=== PATIENT | male | born 1990 | race African-American/Black ===

== ENCOUNTER 2024-08-02 14:43 | Outpatient (AMB) | payer OTHER, SELFPAY ==
--- NOTE | 2024-08-02 15:07 | HO.NEPHOV ---
Vital Signs 08/02/24 15:08 Height 5 ft 9 in Weight 192 lb 4 oz BMI 28.4 BP 112/70 Blood Pressure Location Lt brachial Position Sitting Pulse 75 Pulse Source Pulse Oximeter Pulse Oximetry (%) 98 Oxygen Delivery Method Room Air Intake Visit Reasons: Elevated Creatinine- Conf Cotton Inspector Required: No Accompanied by: Spouse Allergies Sulfa (Sulfonamide Antibiotics) Allergy (Verified 08/02/24 15:10) Unknown HPI Comments Details: I had the pleasure of seeing Shannan in consultation for abnormal renal functions. He is an immigrant from [facility] was been in [facility] for last 2 years. He was accompanied by his Lexy. He has history of recurrent malaria while in [facility] and had taken anti malarial medications. When he arrived in [facility] he was diagnosed to have hypothyroidism and has been on levothyroxine. He also was investigated to have some allergies for which he took cetrizine. When the primary care did some blood work on him, he was found to have serum creatinine close to 1.38 which was consistent when repeated. He never had blood work done in [facility] and is unsure whether he had any underlying CKD in the past. He denied any hospitalizations with urinary tract infection as a child. He denies using any cocaine or having HIV or hepatitis-B. He does not have any diabetes or hypertension. He denies any edema, hematuria, dysuria, orthostatic symptoms. He had 1 episode of syncope close to year and a half for which he was seen in emergency room where he was found to have a serum creatinine of 1.24. He has no specific complaints and currently feels well. [facility] Medical History (Updated 08/02/24 @ 15:54 by Sebastián Gaxiola MD) Elevated serum creatinine Hypothyroidism Family History Father Hypertension Social History (Updated 08/02/24 @ 15:13 by Lesley Conner MA) Alcohol intake: former Patient Tobacco Use Status: Never used Tobacco Physical Exam Vital Signs: Last Vital Signs Pulse 75 08/02/24 15:08 BP 112/70 08/02/24 15:08 Pulse Ox 98 08/02/24 15:08 Oxygen Delivery Method Room Air 08/02/24 15:08 BMI result Body Mass Index 28.4 Const General: comfortable and no acute distress Orientation/consciousness: patient oriented x3 HEENT Head: Yes normocephalic Mouth: Normal oral and palatal mucosa present Eyes EOM: EOMs intact bilaterally Neck Neck: Yes supple Resp Auscultation: clear to auscultation bilaterally Cardio Jugular venous distension: no JVD Rate: regular rate GI Palpation (GI): Soft to palpation Auscultation: normal bowel sounds General: Yes no CVA tenderness Back/Spine/Pelvis Back: no CVA tenderness Skin General skin exam: no rashes or lesions noted Neuro General: patient oriented x3 and moves all extremities Extrem General: Yes no pedal edema Results Reviewed Nephrology Results: No Data to Display Assessment & Plan Assessment & Plan (1) CKD stage 3a, GFR 45-59 ml/min: Code(s): N18.31 - Chronic kidney disease, stage 3a Category: Medical Plan Shannan has CKD from unknown etiology. He is an immigrant from [facility] and has had multiple episodes of plasmodium falciparum infection and has taken multiple courses of antimalarial medications. He never had renal functions checked in [facility]. He denies any UTI as a child. He is not diabetic or hypertensive. Differential diagnosis for CKD is quite broad. I have ordered blood work, imaging studies and 24 hour urine collection for creatinine clearance. He likely will need renal biopsy. He was encouraged to maintain good hydration and avoid nonsteroidal anti-inflammatories. I did not make any medication changes. Time spent retrieving data, patient encounter and documentation 59 minutes. Answered all his and his 's questions & follow-up appointment given. Orders: Orders Blood Urea Nitrogen Today N18.31 - Chronic kidney disease, stage 3a Electrolytes Today N18.31 - Chronic kidney disease, stage 3a Calcium Today N18.31 - Chronic kidney disease, stage 3a Phosphorus Today N18.31 - Chronic kidney disease, stage 3a Myeloperoxidase Antibody Today N18.31 - Chronic kidney disease, stage 3a Complement C3 Today N18.31 - Chronic kidney disease, stage 3a Immunofixation Pnl, Serum Today N18.31 - Chronic kidney disease, stage 3a Phospholipase A2 Receptor Pnl Today N18.31 - Chronic kidney disease, stage 3a US renal BI Today N18.31 - Chronic kidney disease, stage 3a Vitamin D 25-OH Total Today N18.31 - Chronic kidney disease, stage 3a Prothrombin Time INR Today N18.31 - Chronic kidney disease, stage 3a Creatinine Today N18.31 - Chronic kidney disease, stage 3a Anti DNA DS Antibody Today N18.31 - Chronic kidney disease, stage 3a ANA M Reflex Titer and Pattern Today N1.31 - Chronic kidney disease, stage 3a Proteinase 3 PR3 Antibodies Today N1. - Chronic kidney disease, stage 3a Anti Glomerular Basement Memb Today N1. - Chronic kidney disease, stage 3a Complement C4 Today - Chronic kidney disease, stage 3a US renal doppler Today N1.31 - Chronic kidney disease, stage 3a Parathyroid Hormone Intact Today N1. - Chronic kidney disease, stage 3a Complete Blood Count Auto Diff Today N1. - Chronic kidney disease, stage 3a Creatinine Clearance Urine 24U Today N1. - Chronic kidney disease, stage 3a Protein Creatinine Ratio, Ur Today N1. - Chronic kidney disease, stage 3a UA and rflx microscopic Today - Chronic kidney disease, stage 3a Coding Level of Care Code New Pt Level 5 (37140) Diagnoses CKD stage 3a, GFR 45-59 ml/min
[2024-08-02 15:08] VITALS: BP 112/70; PULSE 75; O2SAT 98; BMI 28.4
== END 2024-08-02 16:08 | disposition home or self-care (01) ==
PROVIDERS: PCP Internal Medicine; Referring Provider Internal Medicine; Visit Provider Internal Medicine Nephrology
DX: N18.31 Chronic kidney disease, stage 3a (principal)
CPT/HCPCS: 99204

== ENCOUNTER → 2024-08-02 14:43 | Outpatient (BNVA) | payer OTHER, SELFPAY | PROVIDERS: PCP Internal Medicine; Referring Provider Internal Medicine; Visit Provider Internal Medicine Nephrology | DX: N18.31 Chronic kidney disease, stage 3a (principal) | CPT/HCPCS: 99202 ==

== ENCOUNTER 2024-08-04 10:04 | Outpatient (REF) | payer OTHER, SELFPAY ==
[2024-08-04 10:35] LABS: MANUAL DIFF FLAG NO
[2024-08-04 10:59] LABS: Basophils Percent Auto 0.8 % (0-2); Eosinophils Absolute Auto 0.1 X10*3/uL (0.0-0.4); Eosinophils Percent Auto 1.3 % (0-4); Hematocrit 40.2 % (42.0-52.0); Hemoglobin 13.5 g/dl (14.0-18.0); Imm Gran Abs Auto 0.02 X10*3/uL (0.00-0.03); Imm Gran Pct Auto 0.4 % (0.0-0.4); Lymphocytes Absolute Auto 2.4 X10*3/uL (1.2-4.9); Lymphocytes Percent Auto 45.9 % (20-40); Mean Corpuscular HGB Conc 33.6 g/dl (31.0-36.0); Mean Corpuscular Hemoglobin 29.3 pg (27.0-33.0); Mean Corpuscular Volume 87.4 fL (80.0-98.0); Mean Platelet Volume 9.8 fL (9.4-12.4); Monocytes Absolute Auto 0.5 X10*3/uL (0.1-1.2); Neutrophils Absolute Auto 2.2 x10*3/uL (2.0-8.3); Neutrophils Percent Auto 42.6 % (45-73); Platelet Count 242 X10*3/uL (160-400); Red Cell Distribution Width 13.1 % (11.0-16.0); White Blood Count 5.2 X10*3/uL (4.8-10.8)
[2024-08-04 11:04] LABS: INTERNATIONAL NORM RATIO 1.1 (0.9-1.1); Prothrombin Time 12.6 SEC (10.9-12.4)
[2024-08-04 11:23] LABS: Parathyroid Hormone Intact 40.6 pg/mL (8.7-77.1)
[2024-08-04 11:38] LABS: Anion Gap 9 (12-20); Blood Urea Nitrogen 11 mg/dL (9-16); Calcium 9.3 mg/dL (8.4-10.2); Carbon Dioxide 24 mmol/L (22-29); Chloride 107 mmol/L (96-108); Estimated Glomerular Filt Rate > 60; Phosphorus 2.7 mg/dL (2.7-4.5); Potassium 3.6 mmol/L (3.3-5.1); Sodium 136 mmol/L (135-145); Vitamin D 25-OH Total 30.5 ng/mL (>30)
[2024-08-04 12:14] LABS: Creatinine, mg/dL 42.37
[2024-08-04 12:28] LABS: Creatinine, 24Hr Urine 1.3 G/Day (1.0-2.0); Total Volume 24 Hour Urine 3050 mL
[2024-08-04 12:29] LABS: Creatinine (CrCl) 1.26 mg/dL (0.5-1.4); Creatinine Clearance 71.2 mL/min (85-125)
[2024-08-05 09:13] LABS: Complement C3 117 mg/dL (82-185)
[2024-08-07 15:37] LABS: IgA 150 mg/dL (47-310); IgG 1191 mg/dL (600-1640); IgM 105 mg/dL (50-300)
[2024-08-08 14:09] LABS: Anti Nuclear Antibody Screen NEGATIVE (NEGATIVE)
[2024-08-08 16:39] LABS: Anti DNA DS Antibody <1 IU/mL; Anti Glomerular Basement Memb <1.0 AI; Myeloperoxidase Antibody <1.0 AI; Proteinase 3 PR3 Antibodies <1.0 AI
[2024-08-10 21:03] LABS: Phospholipase A2 IgG ELISA <4 RU/mL; Phospholipase A2 IgG IFA NEGATIVE (NEGATIVE)
== END 2024-08-04 10:05 | disposition home or self-care (01) ==
LOC: HO.LAB 10:04
PROVIDERS: PCP Internal Medicine; Visit Provider Internal Medicine Nephrology
DX: N18.31 Chronic kidney disease, stage 3a (principal)
CPT/HCPCS: 36415; 80051; 82306; 82310; 82565; 82575; 82784; 83520; 83970; 84100; 84520; 85025; 85610; 86021; 86038; 86160; 86225; 86255; 86334

== ENCOUNTER 2024-08-11 10:55 | Outpatient (REF) | payer OTHER, SELFPAY ==
--- NOTE | ~2024-08-11 | US_ITS ---
EXAMINATION: US RETROPERITONEAL LIMITED (RENAL ONLY) CLINICAL INFORMATION: Chronic kidney disease. COMPARISON: None available. Technique: Multiple longitudinal and transverse sonographic images of the kidneys were obtained. Doppler was applied as indicated. FINDINGS: RIGHT KIDNEY: 9.7 x 6.6 x 6.3 cm (SAG x AP x TRV). The kidney is normal in size, contour, and echogenicity. Renal cortical thickness is normal. No calculi or focal parenchymal lesions. No hydronephrosis. LEFT KIDNEY: 10.1 x 4.9 x 5.9 cm (SAG x AP x TRV). The kidney is normal in size, contour, and echogenicity. Renal cortical thickness is normal. No calculi or focal parenchymal lesions. No hydronephrosis. There is normal Doppler bilaterally without evidence of renal artery stenosis. US/US renal doppler IMPRESSION: Normal examination. Electronically signed by: Anne Carballo MD 08/11/2024 03:50 PM EDT
--- NOTE | ~2024-08-11 | US_ITS ---
EXAMINATION: US RETROPERITONEAL LIMITED (RENAL ONLY) CLINICAL INFORMATION: Chronic kidney disease. COMPARISON: None available. Technique: Multiple longitudinal and transverse sonographic images of the kidneys were obtained. Doppler was applied as indicated. FINDINGS: RIGHT KIDNEY: 9.7 x 6.6 x 6.3 cm (SAG x AP x TRV). The kidney is normal in size, contour, and echogenicity. Renal cortical thickness is normal. No calculi or focal parenchymal lesions. No hydronephrosis. LEFT KIDNEY: 10.1 x 4.9 x 5.9 cm (SAG x AP x TRV). The kidney is normal in size, contour, and echogenicity. Renal cortical thickness is normal. No calculi or focal parenchymal lesions. No hydronephrosis. There is normal Doppler bilaterally without evidence of renal artery stenosis. US/US renal BI IMPRESSION: Normal examination. Electronically signed by: Anne Carballo MD 08/11/2024 03:50 PM EDT
== END 2024-08-11 10:56 | disposition home or self-care (01) ==
LOC: HO.HMGCX 10:55
PROVIDERS: PCP Internal Medicine; Visit Provider Internal Medicine Nephrology
DX: N18.31 Chronic kidney disease, stage 3a (principal)
CPT/HCPCS: 76775; 93975

== ENCOUNTER 2024-09-06 14:17 | Outpatient (AMB) | payer OTHER, SELFPAY ==
--- NOTE | 2024-09-06 14:36 | HO.NEPHOV_ITS ---
Vital Signs 09/06/24 14:37 Height 5 ft 9 in Weight 194 lb BMI 28.6 BP 104/64 Blood Pressure Location Lt brachial Position Sitting Pulse 75 Pulse Source Pulse Oximeter Pulse Oximetry (%) 97 Oxygen Delivery Method Room Air Intake Visit Reasons: 4 wks follow up-[facility] Education Professional Required: No Accompanied by: Spouse Allergies Sulfa (Sulfonamide Antibiotics) Allergy (Verified 09/06/24 14:37) Unknown HPI Comments Details: Shannan was seen in follow-up for his higher serum creatinine. He is an immigrant from [facility] was been in [facility] for last 2 years. He was accompanied by his Lexy. He has history of recurrent malaria while in [facility] and had taken anti malarial medications. When he arrived in [facility] he was diagnosed to have hypothyroidism and has been on levothyroxine. He also was investigated to have some allergies for which he took cetrizine. When the primary care did some blood work on him, he was found to have serum creatinine close to 1.38 which was consistent when repeated. He never had blood work done in [facility] and is unsure whether he had any underlying CKD in the past. He denied any hospitalizations with urinary tract infection as a child. He denies using any cocaine or having HIV or hepatitis-B. He does not have any diabetes or hypertension. He denies any edema, hematuria, dysuria, orthostatic symptoms. He had 1 episode of syncope close to year and a half for which he was seen in emergency room where he was found to have a serum creatinine of 1.24. He has no specific complaints and currently feels well. [facility] Medical History (Updated 09/06/24 @ 15:08 by Sebastián Gaxiola MD) Elevated serum creatinine Hypothyroidism Family History Father Hypertension Social History Alcohol intake: former Patient Tobacco Use Status: Never used Tobacco Review of Systems Const All systems reviewed & are unremarkable except as noted in HPI and below Physical Exam Vital Signs: Last Vital Signs Pulse 75 09/06/24 14:37 BP 104/64 09/06/24 14:37 Pulse Ox 97 09/06/24 14:37 Oxygen Delivery Method Room Air 09/06/24 14:37 BMI result Body Mass Index 28.6 Const General: comfortable and no acute distress Orientation/consciousness: patient oriented x3 HEENT Head: Yes normocephalic Mouth: Normal oral and palatal mucosa present Eyes EOM: EOMs intact bilaterally Neck Neck: Yes supple Resp Auscultation: clear to auscultation bilaterally Cardio Jugular venous distension: no JVD Rate: regular rate GI Palpation (GI): Soft to palpation Auscultation: normal bowel sounds General: Yes no CVA tenderness Back/Spine/Pelvis Back: no CVA tenderness Skin General skin exam: no rashes or lesions noted Neuro General: patient oriented x3 and moves all extremities Extrem General: Yes no pedal edema Results Reviewed Nephrology Results: Hgb 13.5 g/dl (14.0-18.0) L 08/04/24 WBC 5.2 X10*3/uL (4.8-10.8) 08/04/24 Plt Count 242 X10*3/uL (160-400) 08/04/24 Sodium 136 mmol/L (135-145) 08/04/24 Potassium 3.6 mmol/L (3.3-5.1) 08/04/24 Chloride 107 mmol/L (96-108) 08/04/24 Carbon Dioxide 24 mmol/L (22-29) 08/04/24 BUN 11 mg/dL (9-16) 08/04/24 Creatinine 1.26 mg/dL (0.5-1.4) 08/04/24 Calcium 9.3 mg/dL (8.4-10.2) 08/04/24 Phosphorus 2.7 mg/dL (2.7-4.5) 08/04/24 PTH Intact 40.6 pg/mL (8.7-77.1) 08/04/24 Renal US 08/11/24 Assessment & Plan Assessment & Plan (1) CKD (chronic kidney disease) stage 2, GFR 60-89 ml/min: Code(s): N18.2 - Chronic kidney disease, stage 2 (mild) Category: Medical Plan Evarist has CKD from unknown etiology. He is an immigrant from [facility] and has had multiple episodes of plasmodium falciparum infection and has taken multiple courses of antimalarial medications while living [place] country. He never had renal functions checked in [facility]. He denies any UTI as a child. He is not diabetic or hypertensive. His W/U included blood work & imaging studies which were unrevealing. His 24 hour urine collection for creatinine clearance showed a GFR of 71 mL/minute. Given all the negative workup to date he does not warrant a renal biopsy now. He was encouraged to maintain good hydration and avoid nonsteroidal anti-inflammatories. I did not make any medication changes. Answered all his and his 's questions & follow-up appointment given. Orders: Orders Creatinine 6 Months N18.2 - Chronic kidney disease, stage 2 (mild) Blood Urea Nitrogen 6 Months N18.2 - Chronic kidney disease, stage 2 (mild) Protein Creatinine Ratio, Ur 6 Months N18.2 - Chronic kidney disease, stage 2 (mild) Electrolytes 6 Months N18.2 - Chronic kidney disease, stage 2 (mild) UA and rflx microscopic 6 Months N18.2 - Chronic kidney disease, stage 2 (mild) Coding Level of Care Code Est Pt Level 4 (59511) Diagnoses CKD (chronic kidney disease) stage 2, GFR 60-89 ml/min N18.2
[2024-09-06 14:37] VITALS: BP 104/64; PULSE 75; O2SAT 97; BMI 28.6
== END 2024-09-06 15:13 | disposition home or self-care (01) ==
PROVIDERS: PCP Internal Medicine; Visit Provider Internal Medicine Nephrology
DX: N18.2 Chronic kidney disease, stage 2 (mild) (principal)
CPT/HCPCS: 99214

== ENCOUNTER → 2024-09-06 14:17 | Outpatient (BNVA) | payer OTHER, SELFPAY | PROVIDERS: PCP Internal Medicine; Visit Provider Internal Medicine Nephrology | DX: N18.2 Chronic kidney disease, stage 2 (mild) (principal) | CPT/HCPCS: 99212 ==

== ENCOUNTER 2025-03-09 14:54 | Outpatient (AMB) | payer OTHER, SELFPAY ==
--- NOTE | 2025-03-09 15:10 | HO.NEPHOV ---
Vital Signs 03/09/25 15:42 Height 5 ft 9 in Weight 190 lb 2 oz BMI 28.1 BP 100/60 Blood Pressure Location Lt brachial Position Sitting Intake Visit Reasons: 6mon follow up-Conf Washer Repairman Required: No Accompanied by: Self / Same As Patient Allergies Sulfa (Sulfonamide Antibiotics) Allergy (Verified 03/09/25 15:42) Unknown HPI Comments Details: Shannan was seen in follow-up for his higher serum creatinine. He is an immigrant from [facility] was been in [facility] for last 2 years. He has history of recurrent malaria while in [facility] and had taken anti malarial medications. When he arrived in [facility] he was diagnosed to have hypothyroidism and has been on levothyroxine. He also was investigated to have some allergies for which he took cetrizine. When the primary care did some blood work on him, he was found to have serum creatinine close to 1.38 which was consistent when repeated. He never had blood work done in [facility] and is unsure whether he had any underlying CKD in the past. He denied any hospitalizations with urinary tract infection as a child. He denies using any cocaine or having HIV or hepatitis-B. He does not have any diabetes or hypertension. He denies any edema, hematuria, dysuria, orthostatic symptoms. He had 1 episode of syncope close to year and a half for which he was seen in emergency room where he was found to have a serum creatinine of 1.24 which is currently stable. He has no specific complaints and currently feels well. [facility] Medical History (Updated 09/06/24 @ 15:08 by Sebastián Gaxiola MD) Elevated serum creatinine Hypothyroidism Family History Father Hypertension Social History Alcohol intake: former Patient Tobacco Use Status: Never used Tobacco Review of Systems Const All systems reviewed & are unremarkable except as noted in HPI and below Physical Exam Const General: comfortable and no acute distress Orientation/consciousness: patient oriented x3 HEENT Head: Yes normocephalic Mouth: Normal oral and palatal mucosa present Eyes EOM: EOMs intact bilaterally Neck Neck: Yes supple Resp Auscultation: clear to auscultation bilaterally Cardio Jugular venous distension: no JVD Rate: regular rate GI Palpation (GI): Soft to palpation Auscultation: normal bowel sounds General: Yes no CVA tenderness Back/Spine/Pelvis Back: no CVA tenderness Skin General skin exam: no rashes or lesions noted Neuro General: patient oriented x3 and moves all extremities Extrem General: Yes no pedal edema Results Reviewed Nephrology Results: Hgb 13.5 g/dl (14.0-18.0) L 08/04/24 WBC 5.2 X10*3/uL (4.8-10.8) 08/04/24 Plt Count 242 X10*3/uL (160-400) 08/04/24 Sodium 136 mmol/L (135-145) 08/04/24 Potassium 3.6 mmol/L (3.3-5.1) 08/04/24 Chloride 107 mmol/L (96-108) 08/04/24 Carbon Dioxide 24 mmol/L (22-29) 08/04/24 BUN 11 mg/dL (9-16) 08/04/24 Creatinine 1.26 mg/dL (0.5-1.4) 08/04/24 Calcium 9.3 mg/dL (8.4-10.2) 08/04/24 Phosphorus 2.7 mg/dL (2.7-4.5) 08/04/24 PTH Intact 40.6 pg/mL (8.7-77.1) 08/04/24 Renal US 08/11/24 Assessment & Plan Assessment & Plan (1) CKD (chronic kidney disease) stage 2, GFR 60-89 ml/min: Code(s): N18.2 - Chronic kidney disease, stage 2 (mild) Category: Medical Plan Shannan has CKD from unknown etiology. He is an immigrant from [facility] and has had multiple episodes of plasmodium falciparum infection and has taken multiple courses of antimalarial medications while living in [place] country. He never had renal functions checked in [facility]. He denies any UTI as a child. He is not diabetic or hypertensive. His W/U included blood work & imaging studies which were unrevealing. His 24 hour urine collection for creatinine clearance showed a GFR of 71 mL/minute. Given all the negative workup to date he does not warrant a renal biopsy now. He was encouraged to maintain good hydration and avoid nonsteroidal anti-inflammatories. I did not make any medication changes. I ordered repeat labs and 24 hour urine for cr cl. Answered all his and his 's questions & follow-up appointment given. Orders: Orders Blood Urea Nitrogen 1 Year N18.2 - Chronic kidney disease, stage 2 (mild) Creatinine 1 Year N18.2 - Chronic kidney disease, stage 2 (mild) Electrolytes 1 Year N18.2 - Chronic kidney disease, stage 2 (mild) Creatinine Clearance Urine 24U 1 Year N18.2 - Chronic kidney disease, stage 2 (mild) Coding Level of Care Code Est Pt Level 4 (21237) Diagnoses CKD (chronic kidney disease) stage 2, GFR 60-89 ml/min N18.2
--- OUTSIDE RECORDS SUMMARY | 2025-03-09 15:38 | XMS_ITS | Encounter Summary ---
Author Organization [facility] Address [address] [place] [address] Phone Care Team Providers Care Assistant Professor Of Marine Biology Name Role Phone Mariam Presley Primary Care Provider [phone] Encounter Details Date Type Department Care Team (Late st Contact Info) Description 07/19/2024 Documentation Only [facility], [address] [place] [address] [place], [place] [address] [place] [address] Social History Tobacco Use Types Packs/Day Years Used Date Smoking Tobacco: Never Assessed Sex and Gender Information Value Date Recorded Sex Assigned at Not on file Legal Sex Male 2:03 PM EDT Gender Identity Not on file Sexual Orientation Not on file documented as of this encounter Plan of Treatment Not on file documented as of this encounter Visit Diagnoses Not on filedocumented in this encounter Care Teams Assistant Professor Of Marine Biology Relationship Specialty Start Date End Date Mariam Presley PCP - General 07/19/24 documented as of this encounter
--- OUTSIDE RECORDS SUMMARY | 2025-03-09 15:38 | XMS_ITS | Clinical Summary ---
Author Organization [facility] Address [address] [place] [id number] Care Team Providers Care Hardwood Floor Installer Name Role Phone Mariam Presley Primary Care Provider [phone] Social History Tobacco Use Types Packs/Day Years Used Date Smoking Tobacco: Never Assessed Sex and Gender Information Value Date Recorded Sex Assigned at Not on file Legal Sex Male 2:03 PM EDT Gender Identity Not on file Sexual Orientation Not on file Plan of Treatment Health Maintenance Due Date Last Done Comments Hepatitis B Vaccine (1 of 3 - 19+ 3-dose series) 2008 Influenza Vaccine (Season Ended) 2025 Pneumococcal Vaccine: Peds ( 0 to 5 Years) and At-Risk Patients (6 to 49 Years) Aged Out No longer eligible b ased on patient's age to complete [place] [id number] [facility] Plan ([id number]) Care Teams Hardwood Floor Installer Relationship Specialty Start Date End Date Mariam Presley PCP - General 07/19/24
--- OUTSIDE RECORDS SUMMARY | 2025-03-09 15:38 | XMS_ITS | Clinical Summary ---
Author Organization [facility] [address] [place] [address] [place] [phone] Phone Care Team Providers Care Panel Installer Name Role Phone Mariam Presley MD Primary Care Provider [phone] Allergies Active Allergy Reactions Criticality Noted Date Comments Sulfa (Sulfonamide Antibiotics) 12/24 Medications cholecalciferol (VITAMIN D-3) 50 mcg (2,000 unit) tablet Take 1 tablet (2,000 Units total) by mouth 1 (one) time each day. 08/10/2024 Active levothyroxine (SYNTHROID, LEVOTHROID) 50 mcg tablet TAKE 1 TABLET BY MOUTH EVERY DAY 90 tablet 01/17/2025 Active Active Problems Problem Noted Date Diagnosed Date Hypothyroidism 05/10/2024 Pruritus 05/10/2024 Immunizations Name Administration Dates Next Due Influenza Quadravalent, MDCK , 0.5ml, preservative free (Flucelvax) 6mo and older 07/06/2023 Tdap Tetanus diptheria acell ular pertussis (Boostrix; Adacel) 7yo and older 07/06/2023 Surgical History Surgery Date Site/Laterality Comments HAND SURGERY PROCEDURE: HISTORICAL HAND SURGERY Family History Medical History Relation Name Comments Hypertension Father Relation Name Status Comments Father Social History Tobacco Use Types Packs/Day Years Used Date Smoking Tobacco: Never Smokeless Tobacco: Never Alcohol Use Standard Drinks/Week Comments Not Currently 0 (1 standard drink = 0.6 oz pur e alcohol) Sex and Gender Information Value Date Recorded Sex Assigned at Not on file Legal Sex Male 8:48 PM EST Gender Identity Not on file Sexual Orientation Not on file Obstetrics History Last Filed Vital Signs Vital Sign Reading Time Taken Comments Blood Pressure 110/60 08/10/2024 1:24 PM EDT Pulse 79 08/10/2024 1:24 PM EDT Temperature - - Respiratory Rate - - Oxygen Saturation - - Inhaled Oxygen Concentration - - Weight 87.5 kg (193 lb) 08/10/2024 1:24 PM EDT Height 177.8 cm (5' 10 ) 08/10/2024 1:24 PM EDT Body Mass Index 27.69 08/10/2024 1:24 PM EDT Plan of Treatment Upcoming Encounters Date Type Department Care Team (Late st Contact Info) Description 07/19/2025 11:00 AM EDT Office Visit Adult Medicine [facility] [address] [place] [phone] Mariam Presley MD [address] [place] [address] Health Maintenance Due Date Last Done Comments Hepatitis B Vaccines (1 of 3 - 19+ 3-dose series) 2008 Depression Screening 11/20/2023 HIV Screening 11/20/2023 Hepatitis C Screening 11/20/2023 Social Influencers of Health Screening 11/20/2023 COVID-19 Vaccine (2023-2 5 season) 2024 Influenza Vaccine (Season Ended) 2025 07/06/20 23 Cholesterol Screening (Lipid Panel) 05/12/2029 05/12/2024 DTaP,Tdap,and Td Vaccines (2 - Td or Tdap) 07/06/2033 07/06/2023 HIB Vaccines Aged Out No longer eligi ble based on patient's age to complete this topic HPV Vaccines Aged Out No longer eligi ble based on patient's age to complete this topic Hepatitis A Vaccines Aged Out No long er eligible based on patient's age to complete this topic IPV Vaccines Aged Out No longer eligi ble based on patient's age to complete this topic MMR Vaccines Aged Out No longer eligi ble based on patient's age to complete this topic Meningococcal ACWY Vaccine Aged Out N o longer eligible based on patient's age to complete this topic Meningococcal B Vaccine Aged Out No l onger eligible based on patient's age to complete this topic Pneumococcal Vaccine: Pediat rics (0 to 5 Years) and At-Risk Patients (6 to 64 Years) Aged Out No longer eligi ble based on patient's age to complete this topic RSV Immunization Patients Un mt 20 months Aged Out No longer eligible b ased on patient's age to complete this topic Varicella Vaccines Aged Out No longer eligible based on patient's age to complete this topic Procedures Procedure Name Priority Date/Time Associated Diagnosis Comments PEARL URINE CULTURE TUBE Routine 02/20/2025 2:46 PM EDT Chronic kidney disease, stage II (mild) URINALYSIS WITH REFLEX MICROSCOPIC AND CULTURE Routine 02/20/2025 2:46 PM EDT Chronic kidney disease, stage II (mild) THYROID STIMULATING HORMONE WITH REFLEX TO FREE T4 AND FREE T3 Routine 02/20/2025 2:46 PM EDT Hypothyroidism, unspecified type PROTEIN AND CREATININE WITH RATIO, URINE Routine 02/20/2025 2:46 PM EDT Chronic kidney disease, stage II (mild) ELECTROLYTE PANEL Routine 02/20/2025 2:4 6 PM EDT Chronic kidney disease, stage II (mild) BUN Routine 02/20/2025 2:46 PM EDT Chronic kidney disease, stage II (mild) CREATININE, SERUM Routine 02/20/2025 2:4 6 PM EDT Chronic kidney disease, stage II (mild) URINALYSIS WITH REFLEX MICROSCOPIC AND CULTURE Routine 02/20/2025 2:46 PM EDT Chronic kidney disease, stage II (mild) from Last 3 Months Results * Urinalysis with reflex microscopic and culture (02/20/2025 2:46 PM EDT) Specific [place] Urine 1.013 1.003 - 1.030 LAB URINALYSIS - AUTOMATED METHOD 02/20/2025 5:35 PM EDT [facility] pH, Urine 7.5 5.0 - 8.0 pH LAB URINALYSIS - AUTOMATED METHOD 02/20/2025 5:35 PM EDT [facility] Leukocytes, Urine Negative Negative LAB URINALYSIS - AUTOMATED METHOD 02/20/2025 5:35 PM EDT [facility] Nitrite, Urine Negative Negative LAB URINALYSIS - AUTOMATED METHOD 02/20/2025 5:35 PM EDT [facility] Protein, Urine Negative <=Trace mg/dL LAB URINALYSIS - AUTOMATED METHOD 02/20/2025 5:35 PM EDT [facility] Glucose, Urine Negative Negative mg/dL LAB URINALYSIS - AUTOMATED METHOD [facility] Ketones, Urine Negative Negative mg/dL LAB URINALYSIS - AUTOMATED METHOD 02/20/2025 5:35 PM EDT [facility] Urobilinogen, Urine 0.2 0.2 - 1.0 mg/dL LAB URINALYSIS - AUTOMATED METHOD 02/20/2025 5:35 PM T [facility] Bilirubin, Urine Negative Negative LAB URINALYSIS - AUTOMATED METHOD 02/20/2025 5:35 PM EDT [facility] Blood, Urine Negative Negative LAB URINALYSIS - AUTOMATED METHOD 02/20/2025 5:35 PM T [facility] Urine Urine specimen obtained by clean catch procedure / Unknown Non-blood Collection / Unknown 02/20/2025 2:46 PM EDT 02/20/2025 2:46 PM EDT us Sebastián Gaxiola MD LAB URINE ORDERABLES Final Resul t [facility] [address] [place] [address], * Pearl urine culture tube (02/20/2025 2:46 PM EDT) Extra Tube Hold for add-ons. 02/20/2025 5:01 PM EDT [facility] Comment:Auto resulted. Urine Urine specimen obtained by clean catch procedure / Unknown Non-blood Collection / Unknown 02/20/2025 2:46 PM EDT 02/20/2025 2:46 PM EDT Sebastián Gaxiola MD LAB URINE ORDERABLES Final Resul t Performing Organization Address [facility]/ZIP Co de Phone Number [facility] [address] [place] [address], [place] [phone] * Thyroid stimulating hormone with reflex to free t4 and free t3 (02/20/2025 2:46 PM EDT) [facility] TSH 2.65 0.40 - 4.00 mcIU/mL LAB CHEMISTRY METHOD 02/20/2025 8:46 PM EDT [facility] Blood Venous blood specimen / Unknown Venipuncture / Unknown 02/20/2025 2:46 PM EDT 02/20/2025 2:46 PM EDT Mariam Presley MD LAB BLOOD ORDERABLES Final Result Performing Organization Address [facility] de Phone Number [facility] [address] [place] [address], [place] [phone] * Protein and creatinine with ratio, urine (02/20/2025 2:46 PM EDT) [facility] Protein, Urine 10 mg/dL LAB CHEMISTRY METHOD 02/20/2025 7:40 PM EDT [facility] Prot/Creat, Ur 0.08 <=0.20 mg/mg creat LAB CHEMISTRY METHOD 02/20/2025 7:40 PM EDT [facility] Creatinine, Urine 120.0 mg/dL LAB CHEMISTRY METHOD 02/20/2025 7:40 PM EDT [facility] Urine Urine specimen obtained by clean catch procedure / Unknown Non-blood Collection / Unknown 02/20/2025 2:46 PM EDT 02/20/2025 2:46 PM EDT us Sebastián Gaxiola MD LAB URINE ORDERABLES Final Resul t Performing Organization Address [facility] de Phone Number [facility] [address] [place] [address], [place] [phone] * Creatinine (02/20/2025 2:46 PM EDT) Creatinine 1.27 0.70 - 1.30 mg/dL LAB CHEMISTRY METHOD 02/20/2025 7:52 PM EDT [facility] eGFR 76 >=60 mL/min/1. 73m2 LAB CHEMISTRY METHOD 02/20/2025 7:52 PM EDT [facility] Comment:Calculation based on the??Chronic Kidney Disease Epidemiology Collaboration (CKD-EPI) equation refit??without adjustment for race. Blood Venous blood specimen / Unknown Venipuncture / Unknown 02/20/2025 2:46 PM EDT 02/20/2025 2:46 PM EDT us Sebastián Gaxiola MD LAB BLOOD ORDERABLES Final Resul t Performing Organization Address [facility] de Phone Number [facility] [address] [place] [address], [place] [phone] * BUN (02/20/2025 2:46 PM EDT) BUN 10 5 - 25 mg/dL LAB CHEMISTRY METHOD 02/20/2025 7:52 PM EDT [facility] Blood Venous blood specimen / Unknown Venipuncture / Unknown 02/20/2025 2:46 PM EDT 02/20/2025 2:46 PM EDT us Sebastián Gaxiola MD LAB BLOOD ORDERABLES Final Resul t Performing Organization Address [facility] Co de Phone Number [facility] [address] [place] [address], [place] [phone] * Electrolyte panel (02/20/2025 2:46 PM EDT) Sodium 137 133 - 145 mmol/L LAB CHEMISTRY METHOD 02/20/2025 7:52 PM EDT [facility] Potassium 4.0 3.5 - 5.5 mmol/L LAB CHEMISTRY METHOD 02/20/2025 7:52 PM EDT [facility] Chloride 106 96 - 110 mmol/L LAB CHEMISTRY METHOD 02/20/2025 7:52 PM EDT [facility] CO2 25 21 - 32 mmol/L LAB CHEMISTRY METHOD 02/20/2025 7:52 PM EDT [facility] Anion Gap 6 3 - 11 LAB CHEMISTRY METHOD 02/20/2025 7:52 PM EDT [facility] Blood Venous blood specimen / Unknown Venipuncture / Unknown 02/20/2025 2:46 PM EDT 02/20/2025 2:46 PM EDT Sebastián Gaxiola MD LAB BLOOD ORDERABLES Final Resul t Performing Organization Address [facility] Co de Phone Number [facility] [address] [place] [address], [place] [phone] from Last 3 Months Insurance [facility] [employer] Care Teams Panel Installer Relationship Specialty Start Date End Date Mariam Preslye MD [address] [place] [address] PCP - General 12/16/22
[2025-03-09 15:42] VITALS: BP 100/60; BMI 28.1
== END 2025-03-09 15:50 | disposition home or self-care (01) ==
LOC: HO.HKAS 14:54
PROVIDERS: PCP Internal Medicine; Visit Provider Internal Medicine Nephrology
DX: N18.2 Chronic kidney disease, stage 2 (mild) (principal)
CPT/HCPCS: 99214

== ENCOUNTER → 2025-03-09 14:54 | Outpatient (BNVA) | payer OTHER, SELFPAY | PROVIDERS: PCP Internal Medicine; Visit Provider Internal Medicine Nephrology | DX: N18.2 Chronic kidney disease, stage 2 (mild) (principal) | CPT/HCPCS: 99212 ==